=== PATIENT | male | born 1950 | race Caucasian/White ===

== ENCOUNTER 2022-05-20 17:57 | Emergency (ER) | payer MEDICARE, BC, SELFPAY ==
[2022-05-20 18:03] VITALS: BP 145/96; PULSE 94; RESP 16; TEMP 36.9; O2SAT 96
[2022-05-20 18:37] LABS: Bilirubin Negative (Negative); Blood Large (Negative); Clarity Cloudy (Clear); Glucose Negative (Negative); Ketones Negative (Negative); Leukocyte Esterase Large (Negative); Nitrite Negative (Negative); Specific Gravity 1.025 (1.005-1.025)
[2022-05-20 18:47] LABS: RBC >50 HPF (0-2); WBC >50 HPF (0-5)
[2022-05-20 18:48] LABS: C & S Indicated? Yes
[2022-05-20] MEDS: Cephalexin 500 MG CAP PO (20:50)
--- NOTE | 2022-05-20 21:01 | W.ED.GENAD ---
Discharge Plan Disposition Patient Disposition: HOME Condition: Stable Discharge Details Clinical Impression: Acute UTI Primary Care Provider: Elif Momin ED Provider: Rajesh Daniels Home Meds and New Rx's Prescriptions: New cephalexin 500 mg capsule 500 mg PO BID 7 Days Qty: 14 0RF Continued simvastatin 80 MG tablet 1 tab PO HS omeprazole 40 MG capsule,delayed release(DR/EC) 1 cap PO BID ranitidine HCl [Zantac] 150 MG tablet 1 tab PO HS alum-mag hydroxide-simeth 200-200-20 mg/5 mL Suspension PO PRN PRN Discharge Instructions Instructions: Urinary Tract Infection in Men (ED) Additional Instructions: Keflex as directed. [id number] Azo as directed for symptomatic control. Plenty of fluids to avoid dehydration. Please watch for new or worsening symptoms and return to the ER for any concerns. Otherwise please contact your primary care provider tomorrow morning to discuss your ER visit need for outpatient reevaluation. Medical Decision Making 71-year-old gentleman who reports he is otherwise healthy, history of a couple of UTIs, presents to the ER now reporting UTI-like symptoms that began approximately 4 to 5 hours ago, dysuria, hematuria. This feels very similar to her previous UTI symptoms. Denies fever, abdominal pain, back pain. Clinically he appears well, nontoxic. He is afebrile his abdomen is soft, nontender. Urinalysis obtained, greater than 50 red and white cells, large leuk esterase. This very well could be a hemorrhagic cystitis. Plan is to treat with p.o. Keflex. We did discuss the importance of outpatient follow-up through his PCP as cystoscopy may be indicated if symptoms not improving. Standard discharge and return precautions were provided. Patient understands, is agreeable to this plan, and has no additional questions or concerns upon discharge. This documentation was generated using [employer] system, please disregard any oddities of phrase or misspellings. Medical Records Medical records reviewed: Yes I reviewed the patient's medical records. Lab Data Lab results reviewed: Yes I reviewed the patient's lab results. Labs: 05/20/22 18:15 Urine - Reflex from Ua Urine Culture - Pending Laboratory Tests Range/Units 05/20/22 18:15 Urine Color (Yellow) Radha Urine Clarity (Clear) Cloudy Urine pH (5-8) 7.0 Ur Specific [place] (1.005-1.025) 1.025 Urine Protein (Negative) mg/dL 100 H Urine Ketones (Negative) mg/dL Negative Urine Blood (Negative) Large H Urine Nitrite (Negative) Negative Urine Bilirubin (Negative) Negative Urine Urobilinogen (Up TO 0.2) EU/dL 2.0 H Ur Leukocyte Esterase (Negative) Large H Urine RBC (0-2) HPF >50 H Urine WBC (0-5) HPF >50 H Ur Epithelial Cells Not Applicable Urine Crystals Not Applicable Urine Bacteria (Negative) HPF Urine Mucus Not Applicable Ur Culture Indicated? Yes Urine Glucose (Negative) mg/dL Negative HPI General Mode of arrival: ambulatory. Date/Time Provider Initiated Documentation: 05/20/22 19:30. Limitations to Documentation: no limitations. Information obtained by: patient and family. History of Present Illness 71 year old M presents to the emergency department with the chief complaint of UTI, described as mild, with intensity rated at 2. Quality is described as burning, and is localized to the genitals. Patient reports no radiation. Patient started experiencing this hour(s) (5) and it has been constant. No relieving factors improve symptom(s), Other factors that worsen symptoms (Urinating) . Patient notes other (Dysuria-hematuria); denies chest pain, fever/chills, loss of appetite and nausea/vomiting. Patient did receive the following treatments prior to arrival, none Related Data Home Medications Medication Instructions Recorded Confirmed omeprazole 40 mg capsule,delayed 1 cap PO BID 08/31/13 05/20/22 release ranitidine HCl 150 mg tablet 1 tab PO HS 08/31/13 05/20/22 (Zantac) simvastatin 80 mg tablet 1 tab PO HS 08/31/13 05/20/22 aluminum-mag hydroxide-simethicone ml PO PRN PRN 05/20/22 200 mg-200 mg-20 mg/5 mL oral susp cephalexin 500 mg capsule 500 mg PO BID 7 days #14 caps 05/20/22 Previous Rx's Medication Instructions Recorded cephalexin 500 mg capsule 500 mg PO BID 7 days #14 caps 05/20/22 Allergies Allergy/AdvReac Type Severity Reaction Status Date / Time aspirin Allergy Severe GI Bleeding Unverified 05/20/22 18:07 morphine Allergy Severe Psychosis Unverified 05/20/22 18:07 Penicillins Allergy Intermediate stomach Unverified 05/20/22 18:07 General Stated Complaint: Urinary BOY: 3 Review of Systems Constitutional Constitutional: Denies fever(s) Cardiovascular Cardiovascular: Denies chest pain Respiratory Respiratory: Denies cough Gastrointestinal Gastrointestinal: Denies abdominal pain, Denies nausea and Denies vomiting Genitourinary Genitourinary: Reports hematuria, Reports dysuria and Denies testicular pain Musculoskeletal Musculoskeletal: Denies back pain PFSH All Active Problems Acute UTI (Acute) Social History Smoking/Tobacco Use Status: Never Smoking risk assessment performed?: Yes Alcohol Intake: never Drug use: Never Substance use type: does not use Do you feel safe at home: Yes Do you feel safe in your relationship?: Yes Exam Const General: cooperative, healthy appearing, comfortable and no acute distress Orientation: alert and awake HENMT Head: normal to inspection, normocephalic and atraumatic Face and sinus: normal facial exam Mouth: moist mucous membranes Eyes General: appearance normal, both eyes and all related structures Conjunctivae: conjunctivae normal Neck Neck: normal visual inspection, full ROM, trachea midline and supple Resp Effort & Inspection: normal respiratory effort and able to speak in complete sentences Cardio Rate: regular rate Rhythm: regular rhythm GI Inspection: normal to inspection Palpation: soft, not firm, no guarding, no pulsatile masses and nontender Back/Spine/Pelvis Back: No back tenderness Skin General skin exam: no rashes or lesions noted Neuro General: patient alert, patient awake, moves all extremities and no focal motor deficits Cognition: normal cognition Speech: speech normal Gait: normal gait Motor: muscle tone normal throughout Sensory Exam: no sensory deficits noted Psych Appearance: grossly normal Mental Status: mental status grossly normal Course Vital Signs Vital signs: Vital Signs Temperature 36.9 C 05/20/22 18:03 Pulse 94 H 05/20/22 18:03 Respiratory Rate 16 05/20/22 18:03 Blood Pressure 145/96 H 05/20/22 18:03 Pulse Oximetry 96 05/20/22 18:03 Temperature 36.9 C 05/20/22 18:03 Temperature Source Temporal Artery Scan 05/20/22 18:03 Pulse 94 H 05/20/22 18:03 Respiratory Rate 16 05/20/22 18:03 Respiratory Effort 05/20/22 18:06 Blood Pressure 145/96 H 05/20/22 18:03 Blood Pressure Position Supine 05/20/22 18:03 Pulse Oximetry 96 05/20/22 18:03 Oxygen Delivery Method Room Air 05/20/22 18:03 Oxygen Flow Rate 0 05/20/22 18:03 Pain Level 4 05/20/22 18:03 Lab/Test Results Lab/Test Results: 05/20/22 18:15 Urine - Reflex from Ua Urine Culture - Pending Laboratory Tests Range/Units 05/20/22 18:15 Urine Color (Yellow) Radha Urine Clarity (Clear) Cloudy Urine pH (5-8) 7.0 Ur Specific [place] (1.005-1.025) 1.025 Urine Protein (Negative) mg/dL 100 H Urine Ketones (Negative) mg/dL Negative Urine Blood (Negative) Large H Urine Nitrite (Negative) Negative Urine Bilirubin (Negative) Negative Urine Urobilinogen (Up TO 0.2) EU/dL 2.0 H Ur Leukocyte Esterase (Negative) Large H Urine RBC (0-2) HPF >50 H Urine WBC (0-5) HPF >50 H Ur Epithelial Cells Not Applicable Urine Crystals Not Applicable Urine Bacteria (Negative) HPF Urine Mucus Not Applicable Ur Culture Indicated? Yes Urine Glucose (Negative) mg/dL Negative
[2022-05-20 21:21] VITALS: BP 135/82; PULSE 87; RESP 18; TEMP 37.4; O2SAT 96
== END 2022-05-20 21:24 | disposition home or self-care (01) ==
PROVIDERS: Emergency Provider Physician Assistant; PCP Family Medicine
DX: N39.0 Urinary tract infection, site not specified (principal); R31.9 Hematuria, unspecified
CPT/HCPCS: 99283; 81003; 81015; 87086; 99284

== ENCOUNTER 2022-07-11 09:39 | Outpatient (REF) | payer MEDICARE, BC, SELFPAY | END 2022-07-11 09:40 | disposition home or self-care (01) | LOC: LBN 09:39 | PROVIDERS: PCP Family Medicine; Visit Provider Nurse Practitioner Family | DX: N39.0 Urinary tract infection, site not specified (principal) | CPT/HCPCS: 87086 ==

== ENCOUNTER 2023-01-20 12:36 | Outpatient (CLI) | payer MEDICARE, BC, SELFPAY ==
--- NOTE | 2023-01-20 | DI.RAD_ITS ---
Exam(s) XR TOE LT GREAT EXAM: XR TOE LT GREAT CLINICAL HISTORY: GREAT TOE PAIN, M79.676, NEW ONSET PAIN AFTER NEW OVERUSE, FAST WALKING. TECHNIQUE: 2D digital imaging was performed. COMPARISON: No exams were available for comparison FINDINGS: 3 views No evidence of acute fracture or diastasis of the Lisfranc joint. No obvious stress fractures. Mild degenerative changes noted in the lateral half of the great toe metatarsophalangeal joint. No erosi ons. Interphalangeal joint of the great toe appears unremarkable. Sesamoid bones subjacent to the g reat toe metatarsal head appear unremarkable. There is a tiny 1 millimeter calcific density seen in the soft tissues adjacent to the medial aspect the head of the great toe metatarsal. No overlying soft tissue defect. There are degenerative changes in the DIP joint of the 2nd toe. IMPRESSION: Mild findings as above. Clinically indicated follow-up MRI can be performed for added sensitivity an d specificity. DATA REPOSITORY: RADIATION DOSE DELIVERED:
== END 2023-01-20 12:56 ==
LOC: DI 12:37
PROVIDERS: PCP Family Medicine; Visit Provider Physician Assistant Medical
DX: M79.675 Pain in left toe(s) (principal); M79.89 Other specified soft tissue disorders
CPT/HCPCS: 73660

== ENCOUNTER 2024-02-11 13:20 | Emergency (ER) | payer MEDICARE, BC, SELFPAY ==
[2024-02-11 13:22] VITALS: BP 151/79; PULSE 108; RESP 14; TEMP 37.2; O2SAT 96
--- NOTE | 2024-02-11 14:18 | ED.GENADUL_ITS ---
Discharge Plan Disposition Patient Disposition: Home Condition: Good Discharge Details Clinical Impression: Hand laceration Primary Care Provider: Elif Momin ED Provider: Saul Buenos and Hernandez Rx's Prescriptions: Continued simvastatin 80 MG tablet 1 tab PO HS omeprazole 40 MG capsule,delayed release(DR/EC) 1 cap PO BID Zantac 150 MG tablet 1 tab PO HS alum-mag hydroxide-simeth 200-200-20 mg/5 mL Suspension 5 ml PO PRN PRN Discharge Instructions Instructions: Diphtheria/Pertussis/Tetanus Vaccine (By injection), Laceration (ED) Additional Instructions: You were seen for a hand laceration that is fairly superficial and after discussion of options have decided to keep the wound clean and dry and allow it to heal naturally. You may take the yellow dressing off in 2 days. At that point you may begin gently cleaning with either soap and water or half peroxide/half water. Follow-up with primary care next week for wound check. If you develop increasing pain, swelling, redness, drainage, fever return to ED. You did have a tetanus booster given today. HPI General Mode of arrival: ambulatory . Date/Time Provider Initiated Documentation: 02/11/24 14:18 . Limitations to Documentation: no limitations . Information obtained by: patient . HPI Narrative: Patient is a [id number] male presents to ED with a laceration to the back of his right hand. Patient was setting up his Rototiller and sustained laceration during this process. Denies any bony injury. Has no significant pain. Bleeding is controlled. Unsure of his last tetanus. No other complaints of. Related Data Home Medications Medication Instructions Recorded Confirmed omeprazole 40 mg capsule,delayed 1 cap PO BID 08/31/13 02/11/24 release ranitidine HCl 150 mg tablet 1 tab PO HS 08/31/13 02/11/24 (Zantac) simvastatin 80 mg tablet 1 tab PO HS 08/31/13 02/11/24 aluminum-mag hydroxide-simethicone 5 ml PO PRN PRN 05/20/22 02/11/24 200 mg-200 mg-20 mg/5 mL oral susp Allergies Allergy/AdvReac Type Severity Reaction Status Date / Time aspirin AdvReac Severe GI Bleeding Unverified 02/11/24 14:16 morphine AdvReac Severe Psychosis Unverified 02/11/24 14:16 Penicillins AdvReac Intermediate stomach Unverified 02/11/24 14:16 General Stated Complaint: Laceration BOY: 3 Review of Systems Narrative: Per HPI Exam Narrative Exam Narrative: Const: WDWN amadou male in NAD. VS per triage. HEENT: NC/AT. Normal facial exam. Eyes: Normal conjunctiva and sclera. Neck: Supple. Trachea midline. Lungs: Normal respiratory effort. Neuro: A+O x 3. Normal speech, mentation, gait. Cranial nerves II - XII grossly intact. No gross motor or sensory deficit. Ext: No bony deformity or tenderness to the hand or wrist on the right. Normal range of motion. Normal strength and sensation. Skin: Warm and dry with 1.5 cm superficial laceration to the dorsum of the right hand. No deep injury present. Course Vital Signs Vital signs: Vital Signs Temperature 99 F 02/11/24 13:22 Pulse 108 H 02/11/24 13:22 Respiratory Rate 14 02/11/24 13:22 Blood Pressure 151/79 H 02/11/24 13:22 Pulse Oximetry 96 02/11/24 13:22 Temperature 99 F 02/11/24 13:22 Temperature Source Skin 02/11/24 13:22 Pulse 108 H 02/11/24 13:22 Respiratory Rate 14 02/11/24 13:22 Respiratory Effort Normal, Non-Labored 02/11/24 14:14 Blood Pressure 151/79 H 02/11/24 13:22 Blood Pressure Position Sitting 02/11/24 13:22 Pulse Oximetry 96 02/11/24 13:22 Oxygen Delivery Method Room Air 02/11/24 13:22 Oxygen Flow Rate 0 02/11/24 13:22 Pain Level 3 02/11/24 14:14 Medical Decision Making Patient is right-hand dominant male presenting with laceration to the dorsum of the right hand which is superficial in nature. We discussed options including simple dressing and allowing to heal on its own, skin adhesive, stitches. Patient has opted for dressing and allowing to heal naturally. Injury is irrigated and cleaned by nursing and Xeroform dressing applied. Wound care discussed. Tetanus updated. Return precautions provided. Wound check in 1 week with PCP. Quality:SDOH Health Related Social Needs: No Data to Display PFSH All Active Problems Hand laceration (Acute) Medical History Hypercholesterolemia GERD (gastroesophageal reflux disease) Surgical History History of Kaci fundoplication S/P hernia repair Social History Smoking/Tobacco Use Status: Never Smoking risk assessment performed?: Yes Alcohol Intake: never Drug use: Never Substance use type: does not use Do you feel safe at home: Yes Do you feel safe in your relationship?: Yes
== END 2024-02-11 14:42 | disposition home or self-care (01) ==
PROVIDERS: Emergency Provider Emergency Medicine; PCP Family Medicine
DX: S61.411A Laceration without foreign body of right hand, initial encounter (principal); Z23 Encounter for immunization; W31.89XA Contact with other specified machinery, initial encounter; Y93.89 Activity, other specified
CPT/HCPCS: 90471; 90715; 99283

== ENCOUNTER → 2024-04-27 19:34 | Outpatient (CLI) | payer MEDICARE, BC, SELFPAY ==
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
== END ==
PROVIDERS: PCP Family Medicine; Visit Provider Physician Assistant Medical
DX: R07.81 Pleurodynia (principal); J98.11 Atelectasis
CPT/HCPCS: 71046; 71100

== ENCOUNTER 2025-01-08 00:59 | Outpatient (CLI) | payer OTHER, SELFPAY ==
--- NOTE | 2025-01-08 | DI.RAD_ITS ---
Exam(s) XR SHOULDER LT COMPLETE 2+V EXAM: XR SHOULDER LT COMPLETE 2+V CLINICAL HISTORY: Arthritis, M13.80; VES #[id number]. TECHNIQUE: 2D digital imaging was performed of the left shoulder. Five images were obtained. AP, G rashey, Y-view and axillary views were obtained. COMPARISON: No exams were available for comparison FINDINGS: BONES: No acute fracture is present. No bony destructive lesion is seen. JOINTS: No dislocation present. There are moderate degenerative changes seen at the glenohumeral join t characterized by joint space narrowing and osteophytes. Mild degenerative changes are also seen at the acromioclavicular joint. SOFT TISSUE: Dystrophic calcification is seen at the posterior aspect of the glenoid. IMPRESSION: Osteoarthritis of the left shoulder. DATA REPOSITORY: RADIATION DOSE DELIVERED:
--- NOTE | 2025-01-08 | DI.RAD_ITS ---
Exam(s) XR SHOULDER RT COMPLETE 2+V EXAM: XR SHOULDER RT COMPLETE 2+V CLINICAL HISTORY: Arthritis, M13.80; VES #[id number]. TECHNIQUE: 2D digital imaging was performed of the right shoulder. Five images were obtained. AP, Grashey, Y-view and axillary views were obtained. COMPARISON: No exams were available for comparison FINDINGS: BONES: No acute fracture is present. No bony destructive lesion is seen. JOINTS: No dislocation present. There [id number] degenerative changes seen at the glenohumeral joint characterized by joint space narrowing and osteophytes. There is an osteophyte seen at the inf erior aspect of the humeral head. The acromioclavicular joint appears well maintained. SOFT TISSUE: Normal. IMPRESSION: Hdzy-ve-tlahfwuw degenerative changes seen in the shoulder. DATA REPOSITORY: RADIATION DOSE DELIVERED:
== END 2025-01-08 01:19 ==
PROVIDERS: PCP Nurse Practitioner Family; Visit Provider Chiropractor
DX: M19.011 Primary osteoarthritis, right shoulder (principal); M19.012 Primary osteoarthritis, left shoulder
CPT/HCPCS: 73030